=== PATIENT | male | born 1985 | race Caucasian/White ===

== ENCOUNTER → 2017-03-23 | Outpatient (CLI) | payer OTHER ==
--- NOTE | 2017-03-23 15:19 | RAD ---
AP and lateral views of the lumbar spine 03/23/2017 Indication: Low back pain following recent injury. Comparison study: None available Findings: 5 nonrib-bearing lumbar vertebrae noted. No evidence of acute fracture or acute alignment abnormality is identified. Vertebral body heights are preserved. Minimal diffuse disc space narrowing is noted. More prominent, mild disc space narrowing is seen at L5-S1 with possible mild posterior osteophytosis. 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 A component of spinal stenosis may be present at the L5-S1 level. No acute soft tissue changes are identified. Impression: Degenerative changes of the lumbar spine, most prominent at the lumbosacral junction as described above, without evidence of acute fracture or alignment abnormality.
--- NOTE | 2017-03-23 16:06 | RAD ---
Indication pain. AP and lateral views of the right knee were obtained. Postoperative changes are noted. No acute bony finding is seen. Significant joint fluid is not apparent. There is a possible loose body in the joint IMPRESSION: No acute bony finding. Possible loose body in the joint
== END | disposition home or self-care (01) ==
LOC: RAD 08:58
PROVIDERS: ATTEND Neuromusculoskeletal Medicine, Sports Medicine
DX: M13.861 Other specified arthritis, right knee (principal)
CPT/HCPCS: 72100; 73560